=== PATIENT | male | born 1990 | race Two or more races ===

== ENCOUNTER 2024-01-01 21:23 | Emergency (ER) | payer SELFPAY ==
[~2024-01-01] VITALS: Ht 182.9 cm; Wt 110.0 kg
[2024-01-01 21:45] VITALS: TEMP 98.9
[2024-01-01 21:56] LABS: Basophils # (auto) 0.1 10 ^3/uL (0-0.2); Basophils % (auto) 1.2 % (0.0-2.0); Eosinophils # (auto) 0.2 10 ^3/uL (0-0.8); Eosinophils % (auto) 3.2 % (0.0-7.0); Hematocrit 44.5 % (41.0-53.0); Hemoglobin 15.2 g/dL (13.5-17.5); Lymphocytes # (auto) 2.9 10 ^3/uL (0.4-5.4); Lymphocytes % (auto) 37.7 % (10.0-50.0); Mean Corpuscular Hemoglobin 30.7 pg (28.0-32.0); Mean Corpuscular Hgb Conc. 34.1 g/dL (32.0-36.0); Monocytes # (auto) 0.7 10 ^3/uL (0-1.3); Monocytes % (auto) 9.3 % (0.0-12.0); Neutrophils # (auto) 3.8 10 ^3/uL (1.6-8.6); Neutrophils % (auto) 48.6 % (37.0-80.0); Nucleated Red Blood Cells % 0.1 %; Red Blood Cells 4.94 10^6/uL (4.5-5.90); Red Cell Distribution Width 13.6 % (11.8-14.3); White Blood Cell 7.8 10^3/uL (4.4-10.8)
[2024-01-01 22:03] LABS: Alanine Aminotransferase 32 U/L (7-40); Albumin 4.6 g/dL (3.2-4.8); Alkaline Phosphatase 63 U/L (46-116); Anion Gap 8 (5-15); Aspartate Aminotransferase 34 U/L (13-40); BUN/Creatinine Ratio 17.2 (10.0-20.0); Bilirubin, Total 1.5 mg/dL (0.2-1.0); Blood Urea Nitrogen 22 mg/dL (9-23); Calcium 9.5 mg/dL (8.5-10.1); Carbon Dioxide 26 mmol/L (20-30); Chloride 103 mmol/L (98-107); Glucose 92 mg/dL (74-106); Magnesium 2.1 mg/dL (1.6-2.6); Potassium 3.6 mmol/L (3.5-5.1); Sodium 137 mmol/L (136-145)
[2024-01-01 22:33] LABS: INR 1.08 (0.9-1.15); Partial Thromboplastin Time 25.5 SEC (24.5-34.5); Prothrombin Time 11.4 sec (9.3-11.8)
[2024-01-01 23:54] VITALS: BP 132/81; PULSE 56; RESP 13; O2SAT 95
== END 2024-01-02 00:11 | disposition home or self-care (01) ==
LOC: EDBD 21:23 → ER 21:23 → EEVIPCON 21:23 → ER 01-02 00:11
DX: R00.2 Palpitations (principal); J45.909 Unspecified asthma, uncomplicated
CPT/HCPCS: 36415; 71045; 80053; 83735; 83880; 84484; 85025; 85610; 85730; 93005

== ENCOUNTER 2024-01-04 22:52 | Emergency (ER) | payer OTHER ==
[~2024-01-04] VITALS: Ht 182.9 cm; Wt 104.5 kg
[2024-01-04 23:22] LABS: Basophils # (auto) 0.1 10 ^3/uL (0-0.2); Basophils % (auto) 0.8 % (0.0-2.0); Eosinophils # (auto) 0.4 10 ^3/uL (0-0.8); Eosinophils % (auto) 3.8 % (0.0-7.0); Hematocrit 47.6 % (41.0-53.0); Hemoglobin 16.1 g/dL (13.5-17.5); Lymphocytes # (auto) 3.4 10 ^3/uL (0.4-5.4); Lymphocytes % (auto) 36.9 % (10.0-50.0); Mean Corpuscular Hemoglobin 30.6 pg (28.0-32.0); Mean Corpuscular Hgb Conc. 33.9 g/dL (32.0-36.0); Mean Corpuscular Volume 90.3 fL (80.0-100.0); Monocytes # (auto) 0.8 10 ^3/uL (0-1.3); Monocytes % (auto) 8.7 % (0.0-12.0); Neutrophils # (auto) 4.6 10 ^3/uL (1.6-8.6); Neutrophils % (auto) 49.8 % (37.0-80.0); Red Blood Cells 5.27 10^6/uL (4.5-5.90); Red Cell Distribution Width 13.4 % (11.8-14.3); White Blood Cell 9.3 10^3/uL (4.4-10.8)
[2024-01-04 23:27] LABS: Alanine Aminotransferase 29 U/L (7-40); Albumin 4.7 g/dL (3.2-4.8); Alkaline Phosphatase 64 U/L (46-116); Anion Gap 5 (5-15); Aspartate Aminotransferase 20 U/L (13-40); Blood Urea Nitrogen 16 mg/dL (9-23); Calcium 10.4 mg/dL (8.7-10.4); Carbon Dioxide 27 mmol/L (20-30); Chloride 105 mmol/L (98-107); Glucose 89 mg/dL (74-106); Magnesium 2.1 mg/dL (1.6-2.6); Potassium 3.9 mmol/L (3.5-5.1); Sodium 137 mmol/L (136-145)
[2024-01-04 23:28] LABS: Bilirubin, Total 0.9 mg/dL (0.2-1.0); Total Protein 7.6 g/dL (5.7-8.2)
[2024-01-05 01:06] VITALS: BP 132/67; PULSE 55; RESP 18; TEMP 97.9; O2SAT 98
== END 2024-01-05 01:06 | disposition home or self-care (01) ==
LOC: ER 22:52
DX: R00.2 Palpitations (principal); J45.909 Unspecified asthma, uncomplicated; Z79.899 Other long term (current) drug therapy
CPT/HCPCS: 36415; 71045; 80053; 83735; 83880; 84484; 85025; 93005

== ENCOUNTER 2024-01-07 12:27 | Emergency (ER) | payer OTHER ==
[~2024-01-07] VITALS: Ht 182.9 cm; Wt 98.9 kg
[2024-01-07] MEDS ORDERED: ALBUTEROL SULF 2.5 MG/0.5ML(0.5%) NEB SOLN NEB ONE (13:00)
[2024-01-07] MEDS: MAALOX PLUS or MAALOX 30 ML PO ONE (13:01)
[2024-01-07 13:02] VITALS: PULSE 89; RESP 17; O2SAT 98
[2024-01-07 14:39] VITALS: BP 121/95; PULSE 76; RESP 16; TEMP 98.2; O2SAT 96
== END 2024-01-07 14:40 | disposition home or self-care (01) ==
LOC: ER 12:27
DX: R06.02 Shortness of breath (principal); R00.2 Palpitations; J45.909 Unspecified asthma, uncomplicated
CPT/HCPCS: 71046; 93005; 94640